=== PATIENT | male | born 1930 | race Caucasian/White ===

== ENCOUNTER → 2019-10-18 | Day surgery (SDC) | payer MEDICARE, OTHER ==
[~2019-10-18] MED LIST: Bacitracin Oint 15 GM Tube ONE; Lactated Ringers 1,000 ML IV SCH; Lidocaine 1% 4 ML ONE; Lidocaine 1% with EPINEPHrine 1:100,000 20 ML MDV ONE; Lidocaine 1%/Sod Bicarbonate in NS 8.4% 1 ML Syringe IDERM PRN; Ondansetron 4 MG/2 ML SDV IVPUSH PRN; Ondansetron 4 MG/2 ML SDV ONE; Phenylephrine/Normal Saline 100 MCG/ML 10 ML Syringe ONE; Propofol 200 MG/20 ML SDV ONE; Sodium Chloride 0.9% 10 ML Syringe FLUSH PRN; ePHEDrine/Normal Saline 25 MG/5 ML Syringe ONE; fentaNYL 100 MCG/2 ML SDV IVPUSH PRN; fentaNYL 100 MCG/2 ML SDV ONE
--- NOTE | 2019-10-18 10:13 | PCM.PREANE ---
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 ) Other: Reports: Depression - Physical Assessment NPO Status Date: 10/17/19 NPO Status Time: 18:00 Height: 1.68 m Weight: 69.3 kg ASA Class: 3 Mental Status: Alert & Oriented x3 Airway Class: Mallampati = 1 Dentition: Reports: Normal Dentition Thyro-Mental Finger Breadths: 3 Mouth Opening Finger Breadths: 5 ROM/Head Extension: Full Lungs: Clear to Auscultation, Normal Respiratory Effort Cardiovascular: Regular Rate, Regular Rhythm - Allergies Allergies/Adverse Reactions: Allergies Allergy/AdvReac Type Severity Reaction Status Date / Time No Known Allergies Allergy Verified 10/17/19 15:01 - Blood Blood Available: No - Anesthesia Plan Pre-Op Medication Ordered: None Beta Mayra: Metoprolol (took in AM) - Acknowledgements Anesthesia Type Planned: MAC Pt an Appropriate Candidate for the Planned Anesthesia: Yes Alternatives and Risks of Anesthesia Discussed w Pt/Guardian: Yes Pt/Guardian Understands and Agrees with Anesthesia Plan: Yes PreAnesthesia Questionnaire HEENT History: Reports: Hard of Hearing, Impaired Vision Cardiovascular History: Reports: Heart Murmur, High Cholesterol Other Cardiovascular History: CORONARY ATHEROSCLEROSIS Respiratory History: Reports: None Other Gastrointestinal History: Heartburn Genitourinary History: Reports: Prostate Disorder, Other (See Below) Other Genitourinary History: Prostate cancer with radiation seeds. Increased frequency voiding. 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 Radiation seeds implanted in 1999. Dermatologic History: Reports: Other (See Below) Other Dermatologic History: skin cancer removed - Infectious Disease History Infectious Disease History: Reports: Chicken Pox, Measles, Mumps - Past Surgical History Head Surgeries/Procedures: Reports: None HEENT Surgical History: Reports: Cataract Surgery Other HEENT Surgeries/Procedures: Bilateral cataract surgery, skin cancer on face Cardiovascular Surgical History: Reports: Carotid Endarterectomy, Coronary Artery Bypass Respiratory Surgical History: Reports: None GI Surgical History: Reports: Colonoscopy, Hernia, Inguinal, Hernia Repair/Other Other GI Surgeries/Procedures: Inguinal Hernia repair 1998. Female Surgical History: Reports: None Male Surgical History: Reports: None, Prostate Biopsy Endocrine Surgical History: Reports: None Neurological Surgical History: Reports: None Musculoskeletal Surgical History: Reports: Carpal Tunnel Oncologic Surgical History: Reports: None Dermatological Surgical History: Reports: Skin Biopsy, Skin Graft - SUBSTANCE USE Smoking Status *Q: Never Smoker Recreational Drug Use History: No - HOME MEDS Home Medications: Home Meds Aspirin [Halfprin] 81 mg PO DAILY 05/08/19 [History] Metoprolol Succinate [Toprol XL] 25 mg PO BID 05/08/19 [History] Omeprazole Magnesium [Prilosec Otc] 20 mg PO DAILY 05/08/19 [History] Clopidogrel [Plavix] 75 mg PO DAILY #20 tablet 05/10/19 [Rx] Acetaminophen [Tylenol] 650 mg PO Q6H PRN 10/17/19 [History] Nystatin 1 dose TOP BID 10/17/19 [History] Rosuvastatin Calcium 20 mg PO BEDTIME 10/17/19 [History] Sertraline [Zoloft] 50 mg PO DAILY 10/17/19 [History] - CURRENT (IN HOUSE) MEDS Current Meds: Current Medications Lactated Ringer's (Ringers, Lactated) 1,000 mls @ 125 mls/hr IV ASDIRECTED NUBIA Stop: 10/18/19 23:00 Lidocaine/Sodium Bicarbonate (Buffered Lidocaine 1% In Ns 8.4%) 0.25 ml IDERM ONETIME PRN PRN Reason: Prior to IV Start Stop: 10/18/19 18:00 Sodium Chloride (Saline Flush) 10 ml FLUSH ASDIRECTED PRN PRN Reason: Keep Vein Open Stop: 10/18/19 18:00
--- NOTE | 2019-10-18 13:22 | PCM.OPNOTE ---
- General Post-Op/Procedure Note Date of Surgery/Procedure: 10/18/19 Operative Procedure(s): excsion of basal cell of the face times two with layered closure and punch bx of the lesion rt cheek Pre Op Diagnosis: basal cell of face Post-Op Diagnosis: Same Anesthesia Technique: General ET Tube Primary Surgeon: Dayton Patiño EBL in mLs: 5 Complications: None Condition: Good
--- NOTE | 2019-10-18 13:34 | PCM.POSTAN ---
POST ANESTHESIA ASSESSMENT - MENTAL STATUS Mental Status: Other (drowsy) - VITAL SIGNS Vital Signs: Last Vital Signs Temp 36.3 C 10/18/19 13:24 Pulse 62 10/18/19 09:35 Resp 18 10/18/19 13:24 BP 137/62 10/18/19 13:24 Pulse Ox 98 10/18/19 13:24 - RESPIRATORY Respiratory Status: Respiratory Rate WNL, Airway Patent, O2 Saturation Stable, Supplemental Oxygen - CARDIOVASCULAR CV Status: Pulse Rate WNL, Blood Pressure Stable - GASTROINTESTINAL GI Status: No Symptoms - PAIN Pain Score: 0 - POST OP HYDRATION Hydration Status: Adequate & Stable
--- NOTE | 2019-10-19 08:20 | OR ---
DATE OF OPERATION: 10/18/2019 SURGEON: Ritesh Patiño MD PREOPERATIVE DIAGNOSIS: Basal cell cancer of left and right nasolabial fold and a lesion indicating skin cancer in the right cheek. POSTOPERATIVE DIAGNOSIS: Basal cell cancer of left and right nasolabial fold and a lesion indicating skin cancer in the right cheek. OPERATION PERFORMED: Excisional biopsy under frozen section control with layered closure of the skin cancer of the left nasolabial fold measuring 2 cm margin and lesion, and excision and layered closure of the basal cell cancer of the right nasolabial fold margin and lesion measuring 1.5 cm, and a 4-mm punch biopsy of the growing nodule indicating cancer of the right cheek. All under frozen section control. DESCRIPTION OF PROCEDURE: The patient was taken to the operating room, placed in a supine position, connected to monitoring equipment, given a general anesthetic and intubated. Three areas in the face had been marked, prepped with Betadine, and left neck prepped in anticipation of skin graft. The area was then draped off in a sterile fashion. The lesion in the left nasolabial fold where previous incision was made was marked and measured 2 cm and then it was anesthetized with 1% Xylocaine with epinephrine, elliptically incised in the lateral margin, marked with a silk suture. This was sent for frozen section control and demonstrating clear margins. The skin edges were undermined and deep tissues were brought together with interrupted 4-0 Vicryl suture and the skin with 4-0 Prolene suture. Attention directed to the right. Skin lesion near the right nasolabial fold, this was marked, measured 1.5 cm, and anesthetized with 1% Xylocaine with epinephrine, elliptically incised in the lateral margin, marked with silk suture and sent to Pathology for frozen section. This demonstrated clear margin, and the skin edges undermined and brought together with interrupted 4-0 Vicryl suture and the skin with interrupted 4-0 Prolene suture. Attention directed to the lesion in the right cheek and this was a nodule indicative of cancer and it was removed with a 4-mm punch and sent to pathology. Frozen section proved to be a cyst. This was closed with a 4-0 Prolene suture. Sterile dressing placed, patient tolerated the procedure. Estimated blood loss was about 5 mL and sent to recovery room in a stable condition. ANESTHESIA: ESTIMATED BLOOD LOSS: MMODAL /[id number]
== END | disposition home or self-care (01) ==
LOC: JD.SDS 09:27
PROVIDERS: ATTEND Surgery
DX: C44.319 Basal cell carcinoma of skin of other parts of face (principal); L90.5 Scar conditions and fibrosis of skin; L72.0 Epidermal cyst; I25.10 Atherosclerotic heart disease of native coronary artery without angina pectoris; K21.9 Gastro-esophageal reflux disease without esophagitis; E78.00 Pure hypercholesterolemia, unspecified; Z79.899 Other long term (current) drug therapy; Z79.02 Long term (current) use of antithrombotics/antiplatelets
CPT/HCPCS: 11104; 11642; 12052; A9270; J2001; J2370; J2405; J2704; J3010; J7050; J7120